=== PATIENT | male | born 1980 | race Two or more races ===

== ENCOUNTER → 2019-02-05 | Outpatient (CLI) | payer OTHER | LOC: M RAD 15:48 | PROVIDERS: ATTEND Family Medicine | DX: M54.5 Low back pain (principal) ==

== ENCOUNTER → 2023-03-02 | Outpatient (CLI) | payer OTHER | LOC: M PLAIMG 14:52 | PROVIDERS: ATTEND Nurse Practitioner Family | DX: Q61.3 Polycystic kidney, unspecified (principal) ==

== ENCOUNTER 2023-06-17 12:09 | Inpatient (IN) | payer OTHER ==
[~2023-06-17] VITALS: Ht 182.9 cm; Wt 96.8 kg
[2023-06-17] MEDS ORDERED: ROSU40TA4 PO (12:36)
[2023-06-17] MEDS ORDERED: DIVA500T9 PO (12:36)
[2023-06-17] MEDS ORDERED: LISI10TA22 PO (12:36)
[2023-06-17] MEDS ORDERED: FAMO40TA3 PO (12:36)
[2023-06-17 13:03] LABS: HEMOGLOBIN 15.3 g/dl (13.5-17.5); MEAN CORPUSCULAR HEMOGLOBIN 28.5 pg (27.0-33.0); MEAN CORPUSCULAR HGB CONC 33.3 g/dl (32.0-36.5); MEAN CORPUSCULAR VOLUME 85.7 fl (80.0-96.0); PLATELET COUNT, AUTOMATED 264 10^3/uL (150-450); RED BLOOD COUNT 5.37 10^6/uL (4.30-6.10); WHITE BLOOD COUNT 10.6 10^3/uL (4.0-10.0)
[2023-06-17 13:21] LABS: ETHYL ALCOHOL (ETHANOL) < 0.003 % (0.000-0.010)
[2023-06-17 13:23] LABS: ALBUMIN 4.9 G/DL (3.2-5.2); ALKALINE PHOSPHATASE 46 U/L (46-116); ALT/SGPT 16 U/L (7.0-40); AST/SGOT 9 U/L (<34); BILIRUBIN,DIRECT 0.3 MG/DL (<0.4); BILIRUBIN,TOTAL 0.9 MG/DL (0.3-1.2); BLOOD UREA NITROGEN 13 MG/DL (9-23); CALCIUM LEVEL 9.5 MG/DL (8.5-10.1); CARBON DIOXIDE LEVEL 28 MMOL/L (20-31); CHLORIDE LEVEL 104 MMOL/L (98-107); CREATININE FOR GFR 0.79 MG/DL (0.70-1.30); GLOMERULAR FILTRATION RATE > 60.0 (>60); GLUCOSE, FASTING 88 MG/DL (60-100); SALICYLATE LEVEL < 3.0 MG/DL (<30); SODIUM LEVEL 139 MMOL/L (136-145); TOTAL PROTEIN 8.4 G/DL (5.7-8.2)
[2023-06-17 13:30] LABS: THYROID STIMULATING HORMONE 0.844 uIU/ML (0.55-4.78)
[2023-06-17 13:31] LABS: AMPHETAMINES LEVEL URINE NEGATIVE (NEGATIVE); BARBITURATES URINE NEGATIVE (NEGATIVE); BENZODIAZEPINES URINE NEGATIVE (NEGATIVE); COCAINE METABOLITE URINE NEGATIVE (NEGATIVE); METHADONE URINE NEGATIVE (NEGATIVE); OPIATES URINE NEGATIVE (NEGATIVE); PHENCYCLIDINE URINE NEGATIVE (NEGATIVE)
[2023-06-17 13:32] LABS: CANNABINOIDS URINE POSITIVE (NEGATIVE)
[2023-06-17] MEDS ORDERED: METF500T13 PO (17:30)
[2023-06-17] MEDS ORDERED: GABA600T4 PO (17:30)
[2023-06-17] MEDS ORDERED: PANT40TA29 PO (17:30)
[2023-06-17] MEDS ORDERED: METO1TAB33 PO (17:30)
[2023-06-17] MEDS ORDERED: LISI20TA33 PO (17:33)
[2023-06-17] MEDS ORDERED: MENSCAP PO (17:33)
[2023-06-17] MEDS ORDERED: OMEG10002 PO (17:33)
[2023-06-17] MEDS ORDERED: diphenhydrAMINE 25MG CAP PO PRN (17:40)
[2023-06-17] MEDS ORDERED: MAALOX 30 ML SUSP *UDC PO PRN (17:40)
[2023-06-17] MEDS ORDERED: IBUPROFEN 400MG TAB PO PRN (17:40)
[2023-06-17] MEDS ORDERED: MOM 30ML SUSPENSION UDC PO PRN (17:40)
[2023-06-17] MEDS ORDERED: HOME MED LIST COMPLETE! XX SCH (17:45)
[2023-06-17] MEDS: metFORMIN (GLUCOPHAGE) 500MG TAB PO SCH (18:36)
[2023-06-17 20:44] VITALS: BP 142/85; TEMP 97.7; O2SAT 99
[2023-06-17] MEDS: GABAPENTIN 300 MG CAP PO SCH (21:01)
[2023-06-17] MEDS: ROSUVASTATIN 10 MG TAB (CRESTOR) PO SCH (21:01)
[2023-06-17] MEDS: traZODone 50 MG TAB PO PRN (21:01)
[2023-06-17] MEDS: FAMOTIDINE 20 MG TAB PO SCH (21:01)
[2023-06-17] MEDS: DIVALPROEX 500MG *ER* TAB PO SCH (21:02)
[2023-06-18 06:37] VITALS: BP 144/88; TEMP 97.8; O2SAT 97
[2023-06-18] MEDS: MULTIVITAMINS/MINERALS THERAP 1 TAB PO SCH (08:07)
[2023-06-18] MEDS: PANTOPRAZOLE 40MG TAB (PROTONIX) PO SCH (08:07)
[2023-06-18] MEDS: OMEGA-3 1000MG CAPSULE PO SCH (08:07)
[2023-06-18] MEDS: NICOTINE 21MG/24HR 1 EA TRANSDERMAL TD PRN (08:07)
[2023-06-18] MEDS: METOPROLOL SUCC (TopROL XL) 50MG **XL** TAB PO SCH (10:34)
[2023-06-18] MEDS: NICOTINE POLACRILEX 2 MG GUM PO PRN ×2 (10:35→15:23)
[2023-06-18] MEDS: ACETAMINOPHEN TAB 650MG DOSE (2X325MG) PO PRN (10:37)
[2023-06-18] MEDS: GABAPENTIN 300 MG CAP PO SCH (14:27)
[2023-06-18 16:18] VITALS: BP 149/85; TEMP 98.8; O2SAT 99
[2023-06-19 06:40] VITALS: BP 142/74; TEMP 98.9; O2SAT 100
[2023-06-19] MEDS: DIVALPROEX 500MG *ER* TAB PO SCH (09:00)
[2023-06-19 16:08] VITALS: BP 143/87; TEMP 98.4; O2SAT 98
[2023-06-19] MEDS: ACETAMINOPHEN 500 MG TAB PO SCH (20:16)
[2023-06-19] MEDS: diphenhydrAMINE 25MG CAP PO SCH (20:17)
[2023-06-20 06:06] VITALS: BP 116/63; TEMP 98.3; O2SAT 99
[2023-06-20 08:04] VITALS: BP 144/75
[2023-06-20 17:13] VITALS: BP 138/78; TEMP 97.9; O2SAT 99
[2023-06-21 06:17] VITALS: BP 116/62; TEMP 98.3; O2SAT 99
[2023-06-21 08:26] VITALS: BP 136/72
[2023-06-21 08:28] VITALS: BP 136/72
[2023-06-21] MEDS ORDERED: DEPA500T2 PO (09:16)
== END 2023-06-21 12:32 | disposition home or self-care (01) | DRG 881 ==
LOC: M ED 12:09 → M ED INP 17:56 → M PSY 19:53
PROVIDERS: ADMIT Student in an Organized Health Care Education/Training Program; ATTEND Student in an Organized Health Care Education/Training Program
DX: F32.A Depression, unspecified (principal); F84.9 Pervasive developmental disorder, unspecified; R45.851 Suicidal ideations; Q61.3 Polycystic kidney, unspecified; F60.89 Other specific personality disorders; F60.81 Narcissistic personality disorder; I10 Essential (primary) hypertension; E78.5 Hyperlipidemia, unspecified; E11.42 Type 2 diabetes mellitus with diabetic polyneuropathy; F17.290 Nicotine dependence, other tobacco product, uncomplicated; K21.9 Gastro-esophageal reflux disease without esophagitis; G89.4 Chronic pain syndrome; G62.9 Polyneuropathy, unspecified; F12.90 Cannabis use, unspecified, uncomplicated; Z71.51 Drug abuse counseling and surveillance of drug abuser; Z79.84 Long term (current) use of oral hypoglycemic drugs; Z79.899 Other long term (current) drug therapy; Z88.2 Allergy status to sulfonamides; Z20.822 Contact with and (suspected) exposure to COVID-19

== ENCOUNTER → 2024-01-24 | Outpatient (CLI) | payer OTHER ==
[~2024-01-24] MED LIST: DEPA500T2 PO; DIVA500T9 PO; FAMO40TA3 PO; GABA-1490 PO; LISI10TA22 PO; LISI20TA33 PO; MENSCAP PO; METF500T13 PO; METO1TAB33 PO; OMEG10002 PO; PANT40TA29 PO; ROSU40TA81 PO
== END ==
LOC: M RAD 14:55
PROVIDERS: ATTEND Nurse Practitioner Family
DX: M51.26 Other intervertebral disc displacement, lumbar region (principal); M47.816 Spondylosis without myelopathy or radiculopathy, lumbar region; M47.817 Spondylosis without myelopathy or radiculopathy, lumbosacral region

== ENCOUNTER → 2024-12-25 | Outpatient (CLI) | payer OTHER | LOC: M RAD 07:20 | PROVIDERS: ATTEND Nurse Practitioner Family | DX: Q61.2 Polycystic kidney, adult type (principal) ==